=== PATIENT | male | born 1995 | race Caucasian/White ===

== ENCOUNTER 2021-07-15 13:30 | Emergency (ER) | payer OTHER ==
[~2021-07-15] VITALS: Ht 188 cm; Wt 75.0 kg
[2021-07-15 14:08] VITALS: BP 120/71
== END 2021-07-15 15:27 | disposition home or self-care (01) ==
LOC: ER 13:30
DX: S22.32XA Fracture of one rib, left side, initial encounter for closed fracture (principal); J20.9 Acute bronchitis, unspecified; Z72.89 Other problems related to lifestyle; X58.XXXA Exposure to other specified factors, initial encounter; Y93.89 Activity, other specified; Y92.89 Other specified places as the place of occurrence of the external cause; Y99.8 Other external cause status
CPT/HCPCS: 71045; 99283